=== PATIENT | female | born 1990 | race Caucasian/White ===

== ENCOUNTER 2023-12-03 04:45 | Day surgery (SDC) | payer BC ==
[2023-12-03] MEDS ORDERED: hydrALAZINE 20 MG/ML VIAL SLOW IVP PRN (05:18)
[2023-12-03 05:35] VITALS: BMI 30.5
== END 2023-12-03 07:25 | disposition home or self-care (01) ==
LOC: CSHLD/OP 04:45
PROVIDERS: ATTEND Obstetrics & Gynecology
DX: O47.1 False labor at or after 37 completed weeks of gestation (principal); O99.353 Diseases of the nervous system complicating pregnancy, third trimester; G43.909 Migraine, unspecified, not intractable, without status migrainosus; O00.01 Abdominal pregnancy with intrauterine pregnancy; Z98.890 Other specified postprocedural states; Z3A.39 39 weeks gestation of pregnancy

== ENCOUNTER 2023-12-04 10:19 | Inpatient (IN) | payer BC ==
[2023-12-04 10:44] VITALS: BMI 30.5
[2023-12-04] MEDS ORDERED: hydrALAZINE 20 MG/ML VIAL SLOW IVP PRN ×2 (10:45→11:27)
[2023-12-04] MEDS ORDERED: Diphenoxylate HCl/Atropine Tablet PO PRN ×2 (11:27)
[2023-12-04] MEDS ORDERED: HYDROcodone/Acetaminophen 5/325 mg Tablet PO PRN ×2 (11:27)
[2023-12-04] MEDS ORDERED: Misoprostol 200 MCG TAB PR PRN (11:27)
[2023-12-04] MEDS ORDERED: Lidocaine 1% (PF) 30 ML VIAL SC PRN (11:27)
[2023-12-04] MEDS ORDERED: Promethazine HCl 25 MG/ML VIAL IM PRN ×2 (11:27→19:19)
[2023-12-04] MEDS ORDERED: Ibuprofen 800 MG TAB PO PRN (11:27)
[2023-12-04] MEDS ORDERED: Methylergonovine 0.2 MG/ML VIAL IM PRN (11:27)
[2023-12-04] MEDS ORDERED: Carboprost 250 MCG/ML AMP IM PRN (11:27)
[2023-12-04] MEDS ORDERED: fentaNYL 50 mcg/mL 1 mL Vial SLOW IVP PRN (11:27)
[2023-12-04] MEDS ORDERED: Oxytocin 30 units/NS 500 ML 500 ML IV SCH (11:30)
[2023-12-04 12:18] LABS: Hematocrit 38.7 % (34.9-44.5); Hemoglobin 13.7 g/dL (12.0-15.5); Mean Corpuscular HGB CONC 35.4 g/dL (32.0-36.0); Mean Corpuscular Hemoglobin 31.9 pg (27.0-33.0); Mean Platelet Volume 10.1 fL (7.4-10.4); Platelet Count 266 10x3/uL (150-450); RBC Distribution Width 13.7 % (11.5-14.5); White Blood Cell (WBC) Count 12.1 10x3/uL (3.5-10.5)
[2023-12-04 12:58] LABS: HBsAg Index 0.19 S/CO (0-0.99); Hep B Surf Ag - L&D Non-Reactive S/CO (NonReactive)
[2023-12-04 12:59] LABS: Syphilis Antibody Nonreactive (Nonreactive); Syphilis Antibody Index 0.05 S/CO (<1.00 Non-Reactive)
[2023-12-04] MEDS: Lactated Ringer's 1,000 ML IV SCH (19:00)
[2023-12-04] MEDS: fentaNYL/Ropivacaine Epidural 100 ML ONE (19:13)
[2023-12-04] MEDS ORDERED: diphenhydrAMINE 50 MG/ML VIAL IVP PRN (19:19)
[2023-12-04] MEDS ORDERED: Naloxone HCl 0.4 mg/ml Vial IVP PRN ×2 (19:19)
[2023-12-04] MEDS ORDERED: Acetaminophen 325 MG TAB PO PRN (19:19)
[2023-12-04] MEDS ORDERED: Moisturizing Cream (Eucerin) 113 GM JAR TOP PRN (19:19)
[2023-12-04] MEDS ORDERED: Lactated Ringer's 500 ML IV PRN (19:19)
[2023-12-04] MEDS ORDERED: Communication Order-Pharmacy FS SCH (19:30)
[2023-12-04] MEDS: Ondansetron PF 4 MG/2 ML Vial IVP PRN (20:45)
[2023-12-05] MEDS ORDERED: Oxytocin 30 units/NS 500 ML 500 ML IV SCH ×2 (00:45→18:30)
[2023-12-05] MEDS ORDERED: CEFAZOLIN 2 GM VIAL ONE (03:25)
[2023-12-05] MEDS ORDERED: Azithromycin 500 MG VIAL ONE (03:25)
[2023-12-05] MEDS: Ondansetron PF 4 MG/2 ML Vial IVP PRN (03:28)
[2023-12-05] MEDS: fentaNYL 2 mcg/Ropivacaine 0.2% Epidural 100 ML CADD EPIDURAL SCH (03:43)
[2023-12-05] MEDS: Oxytocin 30 units/NS 500 ML 500 ML IV SCH (06:39)
[2023-12-05] MEDS ORDERED: Dexmedetomidine 200 MCG/2 ML VIAL ONE (09:01)
[2023-12-05] MEDS: ePHEDrine Sulfate 50 MG/10 ML VIAL SLOW IVP PRN (09:49)
[2023-12-05] MEDS ORDERED: Tranexamic Acid 1,000 MG/10 ML VIAL ONE (13:49)
[2023-12-05] MEDS ORDERED: Bicitra 30 ML UDCUP PO PRN (14:56)
[2023-12-05] MEDS ORDERED: Famotidine/PF 20 mg/2ml Vial SLOW IVP PRN (14:56)
[2023-12-05] MEDS ORDERED: Azithromycin 500 MG in Sodium Chloride 0.9% 250 ML 250 ML IVPB SCH (15:00)
[2023-12-05] MEDS ORDERED: CEFAZOLIN 2 GM in Sodium Chloride 0.9% 100 ML IVPB SCH (15:00)
[2023-12-05] MEDS ORDERED: Chloroprocaine 3% PF 20 ML VIAL ONE (15:16)
[2023-12-05] MEDS ORDERED: Oxytocin 10 UNITS/ML VIAL ONE ×3 (15:16→16:58)
[2023-12-05] MEDS ORDERED: Ketorolac Tromethamine 30 MG (1 mL) VIAL ONE (15:17)
[2023-12-05] MEDS ORDERED: Dexamethasone 4 mg/ml Vial ONE (15:17)
[2023-12-05] MEDS ORDERED: Ondansetron PF 4 MG/2 ML Vial ONE (15:17)
[2023-12-05] MEDS ORDERED: Morphine PF 10 MG/10 ML VIAL ONE (15:18)
[2023-12-05] MEDS ORDERED: Midazolam HCl 2 mg/2 ml Vial ONE ×2 (16:11→16:13)
[2023-12-05] MEDS ORDERED: Meperidine HCl/PF 25 MG (1 mL) VIAL ONE (16:17)
[2023-12-05] MEDS ORDERED: PROPOFOL 20 ML ONE (16:20)
[2023-12-05] MEDS ORDERED: Phytonadione Neonatal 1 MG/0.5 ML AMP ONE (16:28)
[2023-12-05] MEDS ORDERED: Hepatitis B Vaccine 10 MCG/0.5 ML SYR ONE (16:28)
[2023-12-05] MEDS ORDERED: Erythromycin Base 0.5% Oint 1 GM TUBE ONE (16:28)
[2023-12-05] MEDS ORDERED: Ondansetron PF 4 MG/2 ML Vial IVP PRN ×3 (17:12→18:27)
[2023-12-05] MEDS ORDERED: diphenhydrAMINE 50 MG/ML VIAL IVP PRN (17:12)
[2023-12-05] MEDS ORDERED: Naloxone HCl 0.4 mg/ml Vial IV PRN (17:12)
[2023-12-05] MEDS ORDERED: Morphine 4 MG/ML VIAL SLOW IVP PRN (17:12)
[2023-12-05] MEDS ORDERED: Moisturizing Cream (Eucerin) 113 GM JAR TOP PRN (17:12)
[2023-12-05] MEDS ORDERED: Naloxone HCl 0.4 mg/ml Vial IVP PRN ×2 (17:12)
[2023-12-05] MEDS ORDERED: Meperidine HCl/PF 25 MG (1 mL) VIAL SLOW IVP PRN (17:12)
[2023-12-05] MEDS ORDERED: fentaNYL 50 mcg/mL 1 mL Vial SLOW IVP PRN (17:12)
[2023-12-05] MEDS ORDERED: Promethazine HCl 25 MG/ML VIAL IM PRN (17:12)
[2023-12-05] MEDS ORDERED: Communication Order-Pharmacy FS SCH (17:15)
[2023-12-05] MEDS ORDERED: Ketorolac Tromethamine 30 MG (1 mL) VIAL IVP SCH (17:15)
[2023-12-05] MEDS ORDERED: HYDROcodone/Acetaminophen 5/325 mg Tablet PO PRN (18:27)
[2023-12-05] MEDS ORDERED: hydrALAZINE 20 MG/ML VIAL SLOW IVP PRN (18:27)
[2023-12-05] MEDS ORDERED: Boostrix 0.5 ML (Tdap) VIAL (>/=7 yrs of age) IM ONE (18:27)
[2023-12-05] MEDS ORDERED: Lanolin Ointment 7 GM TUBE TOP PRN (18:27)
[2023-12-05] MEDS ORDERED: Bisacodyl 10 MG SUPP PR PRN (18:27)
[2023-12-05] MEDS ORDERED: Methylergonovine 0.2 MG/ML VIAL IM PRN (18:27)
[2023-12-05] MEDS ORDERED: Acetaminophen 325 MG TAB PO PRN (18:27)
[2023-12-05] MEDS ORDERED: Misoprostol 200 MCG TAB PR PRN (18:27)
[2023-12-05] MEDS: Ferrous Sulfate 325 MG TAB PO SCH (21:06)
[2023-12-05] MEDS: Docusate 100 MG CAP PO SCH (21:07)
[2023-12-06] MEDS: Ketorolac Tromethamine 30 MG (1 mL) VIAL IVP PRN (02:22)
[2023-12-06 04:23] LABS: Hematocrit 29.2 % (34.9-44.5); Hemoglobin 9.9 g/dL (12.0-15.5); Mean Corpuscular HGB CONC 33.9 g/dL (32.0-36.0); Mean Corpuscular Hemoglobin 30.8 pg (27.0-33.0); Mean Platelet Volume 9.8 fL (7.4-10.4); Platelet Count 180 10x3/uL (150-450); RBC Distribution Width 13.6 % (11.5-14.5); Red Blood Cell (RBC) Count 3.21 10x6/uL (3.90-5.03); White Blood Cell (WBC) Count 17.7 10x3/uL (3.5-10.5)
[2023-12-06] MEDS: Prenatal Vitamin 1 TAB PO SCH (08:48)
[2023-12-06] MEDS: HYDROcodone/Acetaminophen 5/325 mg Tablet PO PRN (13:23)
[2023-12-06] MEDS ORDERED: ePHEDrine Sulfate 50 MG/10 ML VIAL ONE (15:59)
[2023-12-06] MEDS ORDERED: Bupivacaine/Epinephrine 0.25% 30 ML VIAL ONE (15:59)
[2023-12-06] MEDS ORDERED: Bupivacaine 0.25% HCL 30 ML VIAL ONE (15:59)
[2023-12-06] MEDS: Simethicone Chewable 80 MG TAB PO PRN (16:12)
[2023-12-06] MEDS: Ibuprofen 800 MG TAB PO SCH (22:08)
[2023-12-07 06:06] LABS: #Basophils 0.07 10x3/uL (0.0-0.2); #Eosinphils 0.22 10x3/uL (0.0-0.5); #Monocytes 0.93 10x3/uL (0.0-1.1); #Neutrophils 10.05 10x3/uL (1.5-8.4); %Basophils 0.5 % (0.0-2.0); %Eosinophils 1.6 % (0.0-6.0); %Lymphocytes 16.3 % (18.0-47.0); %Monocytes 6.8 % (0.0-10.0); %Neutrophils 73.6 % (40.0-75.0); Hemoglobin 10.7 g/dL (12.0-15.5); Mean Corpuscular HGB CONC 34.5 g/dL (32.0-36.0); Mean Corpuscular Hemoglobin 31.2 pg (27.0-33.0); Mean Corpuscular Volume 90.4 fL (81.6-98.3); Mean Platelet Volume 9.7 fL (7.4-10.4); Platelet Count 201 10x3/uL (150-450); RBC Distribution Width 13.9 % (11.5-14.5); Red Blood Cell (RBC) Count 3.43 10x6/uL (3.90-5.03); White Blood Cell (WBC) Count 13.7 10x3/uL (3.5-10.5)
[2023-12-07] MEDS ORDERED: HYDROcodone/Acetaminophen 5/325 mg Tablet PO PRN (07:44)
[2023-12-07] MEDS: Acetaminophen 325 MG TAB PO SCH (08:38)
[2023-12-07 20:56] VITALS: TEMP 98.1
[2023-12-08 13:28] VITALS: BP 105/55
== END 2023-12-08 18:40 | disposition home or self-care (01) | DRG 787 ==
LOC: CSHLD/OP 10:19 → CSHLD 11:26 → CSHPP 12-05 20:03
PROVIDERS: ADMIT Obstetrics & Gynecology; ATTEND Obstetrics & Gynecology
PROC: 10D00Z1 Extraction of Products of Conception, Low, Open Approach (ICD-10-PCS; principal; 2023-12-04)
DX: O62.1 Secondary uterine inertia (principal); D62 Acute posthemorrhagic anemia; O63.9 Long labor, unspecified; O00.01 Abdominal pregnancy with intrauterine pregnancy; Z3A.39 39 weeks gestation of pregnancy; Z37.0 Single live birth; O62.0 Primary inadequate contractions; O99.353 Diseases of the nervous system complicating pregnancy, third trimester; G43.909 Migraine, unspecified, not intractable, without status migrainosus; Z98.890 Other specified postprocedural states
CPT/HCPCS: 36415; 51702; 85025; 85027; 86780; 86850; 86900; 86901; 87340; 99283; 99285; J0665; J1100; J1885; J2175; J2250; J2274; J2401; J2405; J2590; J2704; J7120